=== PATIENT | male | born 1990 | race Caucasian/White ===

== ENCOUNTER 2018-03-14 20:54 | Emergency (ER) | payer OTHER ==
[~2018-03-14] VITALS: Ht 170.2 cm; Wt 57.6 kg
== END 2018-03-14 21:43 | disposition home or self-care (01) ==
LOC: ER 20:54
DX: H53.141 Visual discomfort, right eye (principal); R51 Headache

== ENCOUNTER 2022-04-21 15:37 | Emergency (ER) | payer OTHER ==
[~2022-04-21] VITALS: Ht 170.2 cm; Wt 64.9 kg
[2022-04-21] MEDS ORDERED: PROTONIX40 MG PO (16:18)
== END 2022-04-21 19:17 | disposition home or self-care (01) ==
LOC: ER 15:37
DX: J03.90 Acute tonsillitis, unspecified (principal); Z91.013 Allergy to seafood

== ENCOUNTER 2023-09-02 19:08 | Emergency (ER) | payer OTHER ==
[~2023-09-02] VITALS: Ht 170.2 cm; Wt 65.8 kg
[~2023-09-02 19:08] MED LIST: PROTONIX40 MG PO
[2023-09-02] MEDS ORDERED: CEFTRIAXONE SODIUM 1,000 MG VIAL IM STA (22:19)
[2023-09-02] MEDS ORDERED: KETOROLAC TROMETHAMINE 30 MG VIAL IM STA (22:22)
== END 2023-09-03 00:27 | disposition home or self-care (01) ==
LOC: ER 19:08
DX: U07.1 COVID-19 (principal); Z91.013 Allergy to seafood